=== PATIENT | female | born 1975 | race American Indian/Alaskan Native ===

== ENCOUNTER 2016-12-24 02:25 | Emergency (ER) | payer SELFPAY ==
[2016-12-24 03:17] LABS: Basophils % (Auto) 0.9 % (0.0-1.8); Mean Corpuscular HGB Conc 28 % (30-34); Platelet Count 186 K/mm3 (140-440); Red Blood Count 4.62 M/mm3 (3.65-5.03); Red Cell Distribution Width 19.5 % (13.2-15.2); White Blood Count 12.5 K/mm3 (4.5-11.0)
[2016-12-24 03:19] LABS: Hematocrit 27.4 % (30.3-42.9); Hemoglobin 7.7 gm/dl (10.1-14.3); Mean Corpuscular Hemoglobin 17 pg (28-32); Mean Corpuscular Volume 59 fl (79-97)
[2016-12-24 03:40] LABS: Creatine Kinase MB 1.5 ng/mL (0.0-4.0)
[2016-12-24 03:40] LABS: Bilirubin,Urine NEG (Negative); Blood,Urine SM (Negative); Ketones,Urine TR mg/dL (Negative); Leukocyte Esterase,Urine NEG (Negative); Mucus,Urine FEW /HPF; Nitrite,Urine NEG (Negative); Protein,Urine <15 mg/dL mg/dL (Negative); Urobilinogen,Urine < 2.0 mg/dL (<2.0)
[2016-12-24 03:41] LABS: Alanine Aminotransferase 9 units/L (7-56); Albumin 3.9 g/dL (3.9-5); Albumin/Globulin Ratio 1.2 %; Alkaline Phosphatase 103 units/L (35-129); Bilirubin,Total 0.2 mg/dL (0.1-1.2); Blood Urea Nitrogen 6 mg/dL (7-17); Calcium 8.8 mg/dL (8.4-10.2); Carbon Dioxide 22 mmol/L (22-30); Chloride 101.2 mmol/L (98-107); Creatine Kinase 87 units/L (30-135); Glucose 124 mg/dL (65-100); Lipase 20 units/L (13-60); Potassium 3.7 mmol/L (3.6-5.0); Sodium 137 mmol/L (137-145); Total Protein 7.2 g/dL (6.3-8.2)
[2016-12-24 03:46] LABS: Anion Gap 18 mmol/L
[2016-12-24] MEDS ORDERED: CATAPRES ONE (12:44)
[2016-12-24] MEDS ORDERED: NITRO-BID 2% TP ONE ×2 (12:45→12:54)
[2016-12-24] MEDS ORDERED: CATAPRES PO ONE (12:54)
[2016-12-24] MEDS ORDERED: ZOFRAN ONE (13:37)
--- NOTE | 2016-12-24 16:45 | Emergency Department Report ---
ED Abdominal Pain HPI - General Chief Complaint: Abdominal Pain Stated Complaint: ABD/CHEST PAIN Time Seen by Provider: 12/24/16 16:38 Source: patient, EMS Mode of arrival: Wheelchair Limitations: No Limitations - History of Present Illness Initial Comments: 41-year-old female with history of hypertension, GERD, CHF unknown last EMS, morbid obesity presented today because of epigastric abdominal pain radiating up to her chest. Patient states similar to her prior GERD episodes but is worse. Has associated burping and has had a few episodes of nonbloody nonbilious emesis as well as a couple episodes of watery nonbloody diarrhea. Has associated shortness of breath or leg swelling with pain. Takes Zantac on occasion but is not on any medications consistently. Severity scale (0 -10): 8 - Related Data Previous Rx's Medication Instructions Recorded Last Taken Type Famotidine [Pepcid] 40 mg PO BID PRN #20 tablet 12/24/16 Unknown Rx Allergies Allergy/AdvReac Type Severity Reaction Status Date / Time No Known Allergies Allergy Unverified 12/24/16 02:57 ED Review of Systems ROS: Stated complaint: ABD/CHEST PAIN Other details as noted in HPI Comment: All other systems reviewed and negative Constitutional: denies: fever Respiratory: denies: cough Cardiovascular: denies: chest pain Gastrointestinal: abdominal pain, nausea, vomiting, diarrhea Skin: denies: rash Psychiatric: denies: anxiety ED Past Medical Hx - Past Medical History Hx Congestive Heart Failure: Yes Additional medical history: GI problems? - Social History Smoking Status: Current Every Day Smoker Substance Use Type: None - Medications Home Medications: Home Medications Medication Instructions Recorded Confirmed Last Taken Type Famotidine [Pepcid] 40 mg PO BID PRN #20 tablet 12/24/16 Unknown Rx ED Physical Exam - General Limitations: No Limitations General appearance: alert, in no apparent distress - Head Head exam: Present: atraumatic - Eye Eye exam: Present: normal appearance - Respiratory Respiratory exam: Present: normal lung sounds bilaterally. Absent: respiratory distress, wheezes - Cardiovascular Cardiovascular Exam: Present: regular rate, normal rhythm - GI/Abdominal GI/Abdominal exam: Present: soft, distended, other (no right upper quadrant tenderness, Sosa's negative). Absent: tenderness - Neurological Exam Neurological exam: Present: alert, oriented X3 - Psychiatric Psychiatric exam: Present: normal affect ED Course Vital Signs 12/24/16 12/24/16 12/24/16 02:50 06:00 10:02 Temperature 98 F 98.1 F 98.4 F Pulse Rate 64 54 L 72 Respiratory 22 20 20 Rate Blood Pressure 176/94 188/99 Blood Pressure 186/80 [Right] O2 Sat by Pulse 100 100 100 Oximetry 12/24/16 12/24/16 12/24/16 12:50 13:40 13:42 Temperature 98.1 F 98.1 F Pulse Rate 87 77 Respiratory 16 16 16 Rate Blood Pressure Blood Pressure 215/84 196/94 [Right] O2 Sat by Pulse 100 100 100 Oximetry - Reevaluation(s) Reevaluation #1: 12/24/16 17:47 Patient's symptoms resolved after GI cocktail. She is feeling like her normal self now. We'll discharge home with Pepcid Rx and follow-up with primary care doctor." She stopped smoking cigarettes decrease her meal sizes and decrease fat intake Reevaluation #2: 12/24/16 17:56 Labs also noted to have anemia. I discussed this with the patient states that she has fibroids with heavy vaginal bleeding. She is not on any iron supplements. I recommended that she follow up with her primary care and have them place her on iron supplements. ED Medical Decision Making - Lab Data Result diagrams: 12/24/16 03:05 12/24/16 03:05 - Medical Decision Making Labs have been preordered. Patient symptoms are most consistent with GERD. Labs show a negative troponin, mild leukocytosis which could be explained by vomiting and pain. Patient's EKG shows normal sinus rhythm without any ST changes, isolated T-wave inversion in V2. Nonischemic. Patient has multiple risk factors for this being ACS including hypertension, obesity, tobacco use however patient's symptoms appear to be strongly due to GERD, heart score calculated to be 2 due to risk factors. We'll give a GI cocktail and reassess for clinical improvement. Critical care attestation.: If time is entered above; I have spent that time in minutes in the direct care of this critically ill patient, excluding procedure time. ED Disposition Clinical Impression: GERD (gastroesophageal reflux disease) Qualifiers: Esophagitis presence: esophagitis presence not specified Qualified Code(s): K21.9 - Gastro-esophageal reflux disease without esophagitis Disposition: DISCHARGED TO HOME OR SELFCARE Is pt being admited?: No Does the pt Need Aspirin: No Condition: Stable Instructions: Abdominal Pain (ED), Gastroesophageal Reflux Disease (ED), Anemia (ED) Additional Instructions: Please follow up with your primary care physician in the next 3-5 days. Please also make an appointment with the puff iron operator in the next 1-2 weeks. Return to the emergency room if you have severe abdominal pain, chest pain, difficulty breathing or any new symptoms. Prescriptions: Famotidine [Pepcid] 40 mg PO BID PRN #20 tablet PRN Reason: Pain
[2016-12-24] MEDS ORDERED: ALUM-MAG HYDROX-SIMETH 200-200-20MG/5ML PO ONE (17:11)
[2016-12-24] MEDS ORDERED: PEPCID PO ONE (17:11)
[2016-12-24] MEDS ORDERED: LIDOCAINE VISCOUS 2% MM ONE (17:20)
[2016-12-24] MEDS ORDERED: TYLENOL PO ONE (18:10)
[2016-12-24 18:16] VITALS: BP 164/82
== END 2016-12-24 18:16 | disposition home or self-care (01) ==
LOC: ED 02:25
DX: K21.9 Gastro-esophageal reflux disease without esophagitis (principal); F17.200 Nicotine dependence, unspecified, uncomplicated
CPT/HCPCS: 36415; 80053; 81001; 81025; 82550; 82553; 83690; 84484; 85025; 93005; 93010; 99284; J2405